=== PATIENT | male | born 1930 | race Caucasian/White ===

== ENCOUNTER → 2017-03-13 | Outpatient (CLI) | payer MEDICARE ==
[~2017-03-13] MED LIST: FLOM5CAP PO; PERCOCET PO
--- NOTE | 2017-03-13 12:39 | REP ---
REASON: Renal calculi. COMPARISON: 09/02/2016. Renal calcifications are again seen on the left status quo. The right nephric silhouette is obscured. Marked chronic changes seen involving the spine. IMPRESSION: As above. Signed by Cole Meeks DO 03/13/2017 02:46 P
== END ==
LOC: M SMT 11:56
PROVIDERS: ATTEND Nurse Practitioner Women's Health
DX: N20.0 Calculus of kidney (principal)
CPT/HCPCS: 74000; 81001; 87086; G0463

== ENCOUNTER → 2017-07-17 | Outpatient (REF) | payer MEDICARE ==
[~2017-07-17] MED LIST changes: +ASCO25TA PO; +ASPI81TA85 PO; +BEE500CH2 PO; +LIDO5DIS41 TD; +MECL-86 PO; +MULT1TAB10 PO; +NEUR100C PO; +OMEP40CA2 PO; +POTA550T2 PO; +SIMV40TA2 PO; +TRAM50TA2 PO; +VICT18IN SC; +VITA100L PO; +VITA200038 PO
[2017-07-17 13:55] LABS: BILIRUBIN,DIRECT 0.2 MG/DL (0.0-0.2)
[2017-07-21 10:23] LABS: PRETREATED FOLATE FOR RBCFOL 12.5 NG/ML
== END ==
LOC: M LAB REF 12:59
PROVIDERS: ATTEND Internal Medicine Medical Oncology
DX: D64.9 Anemia, unspecified (principal)

== ENCOUNTER → 2017-07-23 | Outpatient (REF) | payer MEDICARE ==
[2017-07-23 19:56] LABS: RETIC HEMOGLOBIN CONTENT CHr 34.7 PG (24-36); RETICULOCYTE ABSOLUTE ADVIA212 47 x10(9)/L (17-77)
[2017-07-25 01:39] LABS: REASON FOR REVIEW COMPREHENSIVE REVIEW
== END ==
LOC: M LAB REF 09:15
PROVIDERS: ATTEND Internal Medicine Medical Oncology
DX: D53.1 Other megaloblastic anemias, not elsewhere classified (principal)

== ENCOUNTER → 2017-08-05 | Outpatient (REF) | payer MEDICARE | LOC: M LAB REF 15:05 | PROVIDERS: ATTEND Internal Medicine Medical Oncology | DX: D64.9 Anemia, unspecified (principal) ==

== ENCOUNTER 2017-08-06 06:21 | Outpatient (CLI) | payer MEDICARE ==
[~2017-08-06 06:21] MED LIST changes: +ACETAMINOPHEN TAB 650MG DOSE (2X325MG) PO ONE; -ASCO25TA PO; -ASPI81TA85 PO; -BEE500CH2 PO; -LIDO5DIS41 TD; -MECL-86 PO; -MULT1TAB10 PO; -NEUR100C PO; -OMEP40CA2 PO; -POTA550T2 PO; -SIMV40TA2 PO; -TRAM50TA2 PO; -VICT18IN SC; -VITA100L PO; -VITA200038 PO; +diphenhydrAMINE 25 MG CAP PO ONE
[2017-08-06] MEDS ORDERED: VITA100L PO (07:53)
[2017-08-06] MEDS ORDERED: VITA200038 PO (07:53)
[2017-08-06] MEDS ORDERED: MULT1TAB10 PO (07:55)
[2017-08-06] MEDS ORDERED: ASCO25TA PO (07:55)
[2017-08-06] MEDS ORDERED: ASPI81TA85 PO (07:55)
[2017-08-06] MEDS ORDERED: BEE500CH2 PO (07:56)
[2017-08-06] MEDS ORDERED: POTA550T2 PO (07:58)
[2017-08-06] MEDS ORDERED: NEUR100C PO (08:10)
[2017-08-06] MEDS ORDERED: OMEP40CA2 PO (08:10)
[2017-08-06] MEDS ORDERED: SIMV40TA2 PO (16:24)
[2017-08-06] MEDS ORDERED: TRAM50TA2 PO (16:25)
[2017-08-06] MEDS ORDERED: VICT18IN SC (16:25)
[2017-08-06] MEDS ORDERED: LIDO5DIS41 TD (16:26)
[2017-08-06] MEDS ORDERED: MECL-86 PO (16:27)
== END 2017-08-06 10:00 | disposition home or self-care (01) ==
LOC: M INFU 06:21
PROVIDERS: ATTEND Internal Medicine Medical Oncology
DX: D64.9 Anemia, unspecified (principal); Z96.643 Presence of artificial hip joint, bilateral; Z96.652 Presence of left artificial knee joint; Z79.82 Long term (current) use of aspirin; Z79.899 Other long term (current) drug therapy
CPT/HCPCS: 36430; P9016

== ENCOUNTER → 2017-08-24 | Outpatient (REF) | payer MEDICARE ==
[~2017-08-24] MED LIST changes: -ACETAMINOPHEN TAB 650MG DOSE (2X325MG) PO ONE; +ASCO25TA PO; +ASPI81TA85 PO; +BEE500CH2 PO; +LIDO5DIS41 TD; +MECL-86 PO; +MULT1TAB10 PO; +NEUR100C PO; +OMEP40CA2 PO; +POTA550T2 PO; +SIMV40TA2 PO; +TRAM50TA2 PO; +VICT18IN SC; +VITA100L PO; +VITA200038 PO; -diphenhydrAMINE 25 MG CAP PO ONE
== END ==
LOC: M SMT 13:01
PROVIDERS: ATTEND Nurse Practitioner Women's Health
DX: R97.20 Elevated prostate specific antigen [PSA] (principal); Z79.899 Other long term (current) drug therapy
CPT/HCPCS: 81001; 87086; G0463

== ENCOUNTER 2017-09-07 14:55 | Outpatient (CLI) | payer MEDICARE ==
[~2017-09-07] VITALS: Ht 172.7 cm; Wt 90.9 kg
[2017-09-07] MEDS ORDERED: ACETAMINOPHEN TAB 650MG DOSE (2X325MG) PO ONE (17:30)
[2017-09-07] MEDS ORDERED: diphenhydrAMINE 25 MG CAP PO ONE (17:30)
[2017-09-07 21:07] LABS: MEAN CORPUSCULAR HEMOGLOBIN 33.3 pg (27.0-33.0); MEAN CORPUSCULAR HGB CONC 33.2 g/dl (32.0-36.5); MEAN CORPUSCULAR VOLUME 100.3 fl (80.0-96.0); RED CELL DISTRIBUTION WIDTH 18.2 % (11.5-14.5); WHITE BLOOD COUNT 5.7 10^3/uL (4.0-10.0)
[2017-09-07 21:26] LABS: PLATELET COUNT, AUTOMATED 83 10^3/uL (150-450)
[2017-09-07 21:28] LABS: IMMATURE PLATELET FRACTION % 10.7 % (0.0-10.9)
== END 2017-09-07 21:12 | disposition home or self-care (01) ==
LOC: M MS5PR 14:55 → M OPCLI5PR 14:55
PROVIDERS: ATTEND Internal Medicine Medical Oncology
DX: D64.9 Anemia, unspecified (principal)
CPT/HCPCS: 36415; 36430; 85027; 85049; 85055; 86850; 86900; 86901; 86920; P9016

== ENCOUNTER → 2017-10-30 | Outpatient (CLI) | payer MEDICARE | LOC: M SMT PRO 08:19 | DX: R97.20 Elevated prostate specific antigen [PSA] (principal) | CPT/HCPCS: G0416 ==

== ENCOUNTER → 2017-11-09 | Outpatient (REF) | payer MEDICARE ==
[2017-11-10 09:45] LABS: IMMEDIATE SPIN CROSSMATCH 1 2
== END ==
LOC: M LAB REF 17:42
DX: D46.9 Myelodysplastic syndrome, unspecified (principal)
CPT/HCPCS: 86900

== ENCOUNTER → 2017-12-01 | Outpatient (CLI) | payer MEDICARE | LOC: M RAD 10:13 | DX: C61 Malignant neoplasm of prostate (principal) | CPT/HCPCS: 78306 ==